=== PATIENT | male | born 1965 | race Hispanic/Latino ===

== ENCOUNTER 2019-03-26 16:45 | Emergency (ER) | payer OTHER ==
[2019-03-26 17:14] LABS: BASOPHILS % (AUTO) 0.5 % (0.0-5.0); HEMATOCRIT 36.8 % (42-54); LYMPHOCYTES % (AUTO) 18.2 % (21.0-51.0); MEAN CORPUSCULAR HEMOGLOBIN 32.5 pg (27.0-33.0); MEAN CORPUSCULAR HGB CONC 34.8 g/dL (32.0-36.0); MEAN CORPUSCULAR VOLUME 93.3 fL (79-99); MONOCYTES % (AUTO) 6.1 % (3.0-13.0); NEUTROPHILS % (AUTO) 73.2 % (40.0-77.0); NUCLEATED RED BLOOD CELLS 0.1 % (0.0-0.19); PLATELET COUNT (AUTO) 229 K/uL (130-400); RED BLOOD CELL COUNT(AUTO) 3.95 MIL/uL (4.50-6.20); RED CELL DISTRIBUTION WIDTH 13.2 % (11.0-15.5); WHITE BLOOD COUNT (AUTO) 6.4 K/uL (4.8-10.8)
[2019-03-26 17:23] LABS: CREATININE 1.5 mg/dL (0.5-1.5); POTASSIUM 4.2 mmol/L (3.5-5.1)
[2019-03-26 17:26] LABS: INR 1.01 (0.85-1.15); PARTIAL THROMBOPLASTIN TIME 28.5 SEC (26.3-35.5); PROTHROMBIN TIME 10.6 SEC (9.6-11.6)
[2019-03-26 17:28] LABS: ALBUMIN 4.2 g/dL (3.5-5.0); BILIRUBIN,TOTAL 0.3 mg/dL (0.2-1.0); TOTAL PROTEIN, SERUM 7.5 g/dL (6.0-8.3)
== END 2019-03-26 20:23 | disposition home or self-care (01) ==
LOC: EDH 16:45
DX: K80.50 Calculus of bile duct without cholangitis or cholecystitis without obstruction (principal); R74.8 Abnormal levels of other serum enzymes; C92.10 Chronic myeloid leukemia, BCR/ABL-positive, not having achieved remission; R07.9 Chest pain, unspecified; E11.9 Type 2 diabetes mellitus without complications; I10 Essential (primary) hypertension
CPT/HCPCS: 36415; 71045; 76705; 80053; 83690; 84484; 85025; 85610; 85730; 93005

== ENCOUNTER 2023-06-08 21:08 | Emergency (ER) | payer BC, OTHER ==
[~2023-06-08] VITALS: Ht 172.7 cm; Wt 81.2 kg
[2023-06-08 21:16] VITALS: BP 160/92; PULSE 91; RESP 16
[2023-06-08] MEDS ORDERED: FLUORESCEIN SODIUM 1 STRIP STRIP OP SCH (21:30)
[2023-06-08] MEDS ORDERED: TETRACAINE HCL 0.5% 4 ML OPHTH SOLN OP SCH (21:30)
[2023-06-08] MEDS ORDERED: POLY10DR22 OP (22:08)
== END 2023-06-08 22:20 | disposition home or self-care (01) ==
LOC: EDH 21:08
DX: H10.89 Other conjunctivitis (principal); H57.89 Other specified disorders of eye and adnexa; I10 Essential (primary) hypertension; E11.9 Type 2 diabetes mellitus without complications

== ENCOUNTER 2023-06-12 04:28 | Observation (INO) | payer BC ==
[~2023-06-12] VITALS: Ht 167.6 cm; Wt 81.6 kg
[2023-06-12] VITALS (7 sets, daily range): BP systolic 144–150; BP diastolic 82–89; PULSE 76–94; RESP 17–20; O2SAT 99
[~2023-06-12 04:28] MED LIST: POLY10DR22 OP
[2023-06-12 04:39] LABS: BASOPHILS # (AUTO) 0.04 K/uL (0.00-0.20); BASOPHILS % (AUTO) 0.3 % (0.0-5.0); EOSINOPHILS # (AUTO) 0.32 K/uL (0.00-0.70); EOSINOPHILS % (AUTO) 2.7 % (0.0-8.0); HEMATOCRIT 41.4 % (42-54); IMMATURE GRANULOCYTE ABSOLUTE 0.06 K/uL (0-1); LYMPHOCYTES # (AUTO) 2.1 K/uL (1.0-4.8); LYMPHOCYTES % (AUTO) 17.9 % (21.0-51.0); MEAN CORPUSCULAR HEMOGLOBIN 31.9 pg (27.0-33.0); MEAN CORPUSCULAR HGB CONC 35.3 g/dL (32.0-36.0); MEAN CORPUSCULAR VOLUME 90.6 fL (79-99); MONOCYTES # (AUTO) 0.9 K/uL (0.1-1.0); MONOCYTES % (AUTO) 7.6 % (3.0-13.0); NEUTROPHILS # (AUTO) 8.3 K/uL (1.8-7.7); PLATELET COUNT (AUTO) 241 K/uL (130-400); RED BLOOD CELL COUNT(AUTO) 4.57 MIL/uL (4.50-6.20); RED CELL DISTRIBUTION WIDTH 12.5 % (11.0-15.5); WHITE BLOOD COUNT (AUTO) 11.7 K/uL (4.8-10.8)
[2023-06-12 04:50] LABS: CREATININE 1.3 mg/dL (0.5-1.5); POTASSIUM 4.3 mmol/L (3.5-5.1)
[2023-06-12] MEDS: LIDOCAINE HCL 2% VISCOUS 15 ML UDCUP ONE ×2 (04:54→05:11)
[2023-06-12] MEDS: MAG/ALUM/SIMETH 30 ML UDCUP ONE ×2 (04:54→05:11)
[2023-06-12 04:55] LABS: INR < 0.93 (0.85-1.15); PROTHROMBIN TIME 10.3 SEC (9.6-11.6)
[2023-06-12 04:56] LABS: PARTIAL THROMBOPLASTIN TIME 29.2 SEC (26.3-35.5)
[2023-06-12] MEDS ORDERED: LIDOCAINE HCL 2% VISCOUS 15 ML UDCUP PO ONE (05:00)
[2023-06-12] MEDS ORDERED: MAG/ALUM/SIMETH 30 ML UDCUP PO ONE (05:00)
[2023-06-12 05:03] LABS: ALBUMIN 4.3 g/dL (3.5-5.0); BILIRUBIN,TOTAL 0.4 mg/dL (0.2-1.0); TOTAL PROTEIN, SERUM 8.1 g/dL (6.0-8.3)
[2023-06-12] MEDS ORDERED: NITROGLYCERIN 0.4 MG SL TAB SL ONE (05:11)
[2023-06-12] MEDS ORDERED: NITROGLYCERIN 0.4 MG SL TAB SL PRN (05:30)
[2023-06-12] MEDS ORDERED: MORPHINE 2 MG SYG IVP ONE (05:30)
[2023-06-12] MEDS ORDERED: IOHEXOL 350 MG/ML 100ML INFUS..BTL IV ONE (05:39)
[2023-06-12] MEDS ORDERED: NITROGLYCERIN 1GM OINT 1 INCH/1GM TD SCH (07:00)
[2023-06-12] MEDS: INSULIN HUMULIN R 100 UNIT/ML 3ML SQ SCH ×2 (07:26→11:30)
[2023-06-12 08:15] LABS: APPEARANCE,URINE CLEAR (CLEAR); BILIRUBIN,URINE NEGATIVE (NEGATIVE); COLOR,URINE COLORLESS (YELLOW); GLUCOSE, URINE (UA) NEGATIVE (NEGATIVE); KETONES,URINE 5 mg/dL (NEGATIVE); LEUKOCYTE ESTERASE ,URINE NEGATIVE Leu/uL (NEGATIVE); NITRATE,URINE NEGATIVE (NEGATIVE); OCCULT BLOOD,URINE NEGATIVE (NEGATIVE); PROTEIN,URINE NEGATIVE (NEGATIVE); UROBILINOGEN,URINE 0.2 mg/dL (0.2-1.0)
[2023-06-12] MEDS ORDERED: NITROGLYCERIN 1GM OINT 1 INCH/1GM TD PRN (08:30)
[2023-06-12 08:39] LABS: ADD UA MICROSCOPIC NO
[2023-06-12] MEDS: FAMOTIDINE 20MG VIAL IV SCH ×2 (08:40→11:55)
[2023-06-12] MEDS ORDERED: METOPROLOL TARTRATE 25 MG TAB PO SCH (09:00)
[2023-06-12] MEDS ORDERED: ENOXAPARIN SODIUM 40 MG/0.4 ML SYRINGE SQ SCH (09:00)
[2023-06-12] MEDS ORDERED: ASPIRIN 81 MG EC TAB PO SCH (09:00)
[2023-06-12 12:11] LABS: HEMOGLOBIN A1C 6.5 % (4.0-6.0)
[2023-06-12] MEDS ORDERED: PANTOPRAZOLE 40 MG TAB DR PO SCH (13:00)
[2023-06-12] MEDS ORDERED: PANT40SU PO (13:56)
== END 2023-06-12 15:00 | disposition home or self-care (01) ==
LOC: EDH 04:28 → EDHIP 06:50 → 2BH 08:32
PROVIDERS: ADMIT Hospitalist; ATTEND Hospitalist
DX: I20.0 Unstable angina (principal); K44.9 Diaphragmatic hernia without obstruction or gangrene; I10 Essential (primary) hypertension; I31.9 Disease of pericardium, unspecified; E11.9 Type 2 diabetes mellitus without complications; C91.10 Chronic lymphocytic leukemia of B-cell type not having achieved remission; E78.5 Hyperlipidemia, unspecified; Z79.899 Other long term (current) drug therapy
CPT/HCPCS: 96374; 96372; 96375; 99285; 83036; 82550; 83874; 84484 ×2; 80053; 83880; 83690; 85025; 85378; 85610; 85730; 82948; 81003; 36415; 71275; 74178; 93306; 93356; 93005 ×2; G0378 ×8; J3490; J2270; J1650; Q9967

== ENCOUNTER → 2025-03-21 | Outpatient (CLI) | payer OTHER ==
[~2025-03-21] MED LIST changes: +PANT40SU PO
--- NOTE | 2025-03-22 09:06 | HMCIMG ---
EXAM: CT Cardiac calcium scoring. CLINICAL HISTORY: Screening. TECHNIQUE: Thin collimated axial CT cardiac images were obtained. A CT scan is done according to ALARA (As Low As Reasonably Achievable). CONTRAST: None. COMPARISON: None provided. FINDINGS: Calcium Score: VESSEL Number of lesions Volume mm3 Equi. Mass/mg Calcium score LM 1 55.0 - 69.9 LAD 9 530.0 - 681.5 LCX 3 313.0 - 420.5 RCA 11 411.9 - 558.2 Total 24 1309.9 - 1730.2 IMPRESSION: The total calcium score is 1730.2. 99th percentile. /[place]
== END | disposition home or self-care (01) ==
LOC: RAH 15:24
PROVIDERS: ATTEND Family Medicine
DX: Z13.6 Encounter for screening for cardiovascular disorders (principal)
CPT/HCPCS: 75571